=== PATIENT | female | born 1955 | race Caucasian/White ===

== ENCOUNTER 2016-12-11 15:25 | Inpatient (IN) | payer OTHER ==
[~2016-12-11] VITALS: Ht 167.6 cm; Wt 43.7 kg
[~2016-12-11 15:25] MED LIST: LORT5TAB PO; Z.0.NO CURRENT MEDS
[2016-12-11 15:27] VITALS: BP 154/77; PULSE 87; RESP 15; TEMP 97.9; O2SAT 97
[2016-12-11 15:53] VITALS: BP 168/95; PULSE 74; RESP 18; TEMP 98.2; O2SAT 94
[2016-12-11] MEDS ORDERED: KETOROLAC TROMETHAMINE 30 MG/ML (IVP) VIAL IV PUSH ONE (16:15)
[2016-12-11 16:38] LABS: AUTOMATED NEUTROPHIL # 3.7 TH/MM3 (1.8-7.7); BASOPHIL % 0.7 % (0.0-2.0); EOSINOPHIL # 0.1 TH/MM3 (0-0.4); EOSINOPHIL % 1.7 % (0.0-4.0); HEMATOCRIT 43.3 % (35.0-46.0); HEMO FLAGS DIFF FINAL; LYMPH % 27.6 % (9.0-44.0); LYMPHOCYTE # 1.6 TH/MM3 (1.0-4.8); MEAN CELL VOLUME 91.4 FL (80.0-100.0); MEAN CORPUSCULAR HEMOGLOBIN 30.5 PG (27.0-34.0); MEAN CORPUSCULAR HGB CONC 33.4 % (32.0-36.0); MONO % 7.5 % (0.0-8.0); NEUT % 62.5 % (16.0-70.0); PLATELET COUNT 219 TH/MM3 (150-450); RED BLOOD COUNT 4.74 MIL/MM3 (4.00-5.30); RED CELL DISTRIBUTION WIDTH 13.1 % (11.6-17.2); WHITE BLOOD COUNT 5.9 TH/MM3 (4.0-11.0)
--- NOTE | 2016-12-11 16:50 | RADRPT ---
EXAM DATE/TIME: 12/11/2016 16:19 [facility] COMPARISON: No previous studies available for comparison. INDICATIONS : Left sided chest pain, extending into shoulder, arm, and jaw. MEDICAL HISTORY : Chronic obstructive pulmonary disease. SURGICAL HISTORY : None. ENCOUNTER: Initial ACUITY: 3 weeks PAIN SCORE: 6/10 LOCATION: Left chest, shoulder, arm, and jaw. FINDINGS: Lungs are hyperexpanded without significant focal pleural or parenchymal opacities. Adnexal lead is w ithin normal limits. There is prominence of the AP window likely due to tortuosity of the thoracic ao rta. Bony thorax is intact. CONCLUSION: 1. Changes of obstructive pulmonary disease. 2. Prominent AP window which may be due to tortuosity of the thoracic aorta. This can be further eval uated with CT examination as clinically warranted. Dinesh Devine MD on December 11, 2016 at 16:48 Board Certified Radiologist. This report was verified electronically.
[2016-12-11 16:53] LABS: ANION GAP 7 MEQ/L (5-15); BICARBONATE 29.5 MEQ/L (21.0-32.0); BLOOD UREA NITROGEN 11 MG/DL (7-18); CHLORIDE 103 MEQ/L (98-107); GLOMERULAR FILTRATION RATE 85 ML/MIN (>89); POTASSIUM 3.6 MEQ/L (3.5-5.1); SODIUM (NA) 139 MEQ/L (136-145)
[2016-12-11 17:08] LABS: CREATINE KINASE 68 U/L (26-192)
--- NOTE | 2016-12-11 17:13 | PD ---
HPI Chief Complaint: Chest Pain Time Seen by Provider: 15:45 Travel History International Travel<30 days: No Contact w/Intl Traveler<30days: No Traveled to known affect area: No History of Present Illness HPI 61-year-old female came to the emergency room with history of left-sided chest pain radiating down to her left arm left shoulder neck and left side of her jaw. This has been going on for past 3-4 weeks and has been worse for past 6-8 days. Pain has been on and off. Worsen to some extent on movement but is present even when she is at rest. Vital signs were stable. Patient is a heavy smoker. She has history of hypertension. Patient had a stress test done one year ago at [facility] which was negative. No history of syncopal episode. No history of shortness of breath. No history of recent long distance travel or hospitalization. [facility] Past Medical History Narrative Medical List of her past medical, surgical, social and family history is reviewed from the nursing note. COPD: Yes Past Surgical History Gynecologic Surgery: Yes (LEFT OVARY REMOVED) Social History Alcohol Use: No Tobacco Use: Yes (6-8 cigarettes per day) Substance Use: No Allergies-Medications (Allergen,Severity, Reaction): Uncoded Allergies: LITTLE (Allergy, Mild, 06/10/09) Comments List of her allergies reviewed from the nursing note. Reported Meds & Prescriptions Reported Meds & Active Scripts Active No Active Prescriptions or Reported Medications Narrative Medication List of her home medications reviewed from the nursing note. Review of Systems Except as stated in HPI: all other systems reviewed are Neg Physical Exam Narrative GENERAL: Awake, alert, anxious, mild distress SKIN: Focused skin assessment warm/dry. HEAD: Atraumatic. Normocephalic. EYES: Pupils equal and round. No scleral icterus. No injection or drainage. ENT: No nasal bleeding or discharge. Mucous membranes pink and moist. NECK: Trachea midline. No JVD. CARDIOVASCULAR: Regular rate and rhythm. No murmur appreciated. RESPIRATORY: No accessory muscle use. Clear to auscultation. Breath sounds equal bilaterally. GASTROINTESTINAL: Abdomen soft, non-tender, nondistended. Hepatic and splenic margins not palpable. MUSCULOSKELETAL: No obvious deformities. No clubbing. No cyanosis. No edema. Shoulder and back is tender on palpation NEUROLOGICAL: Awake and alert. No obvious cranial nerve deficits. Motor grossly within normal limits. Normal speech. PSYCHIATRIC: Appropriate mood and affect; insight and judgment normal. Data Data Last Documented VS Vital Signs Date Time Temp Pulse Resp B/P (MAP) Pulse Ox O2 Delivery O2 Flow Rate FiO2 12/11/16 15:53 98.2 74 18 168/95 (119) 94 Room Air Orders Orders Electrocardiogram (12/11/16 15:34) Complete Blood Count With Diff (12/11/16 15:34) Basic Metabolic Panel (Bmp) (12/11/16 15:34) Ckmb (Isoenzyme) Profile (12/11/16 15:34) Troponin I (12/11/16 15:34) Chest, Single Ap (12/11/16 15:34) D-Dimer (12/11/16 16:02) Wool Sacker / Telemetry MATT.Q8H (12/11/16 16:02) Ketorolac Inj (Toradol Inj) (12/11/16 16:15) Ct Pulmonary Angiogram (12/11/16 ) Iohexol 350 Inj (Omnipaque 350 Inj) (12/11/16 17:42) Admit Order (Ed Use Only) (12/11/16 19:05) Labs Laboratory Tests Test 12/11/16 16:00 White Blood Count 5.9 TH/MM3 Red Blood Count 4.74 MIL/MM3 Hemoglobin 14.5 GM/DL Hematocrit 43.3 % Mean Corpuscular Volume 91.4 FL Mean Corpuscular Hemoglobin 30.5 PG Mean Corpuscular Hemoglobin Concent 33.4 % Red Cell Distribution Width 13.1 % Platelet Count 219 TH/MM3 Mean Platelet Volume 9.9 FL Neutrophils (%) (Auto) 62.5 % Lymphocytes (%) (Auto) 27.6 % Monocytes (%) (Auto) 7.5 % Eosinophils (%) (Auto) 1.7 % Basophils (%) (Auto) 0.7 % Neutrophils # (Auto) 3.7 TH/MM3 Lymphocytes # (Auto) 1.6 TH/MM3 Monocytes # (Auto) 0.4 TH/MM3 Eosinophils # (Auto) 0.1 TH/MM3 Basophils # (Auto) 0.0 TH/MM3 CBC Comment DIFF FINAL Differential Comment D-Dimer Quantitative (PE/DVT) 0.67 MG/L FEU Blood Urea Nitrogen 11 MG/DL Creatinine 0.70 MG/DL Random Glucose 91 MG/DL Calcium Level 9.0 MG/DL Sodium Level 139 MEQ/L Potassium Level 3.6 MEQ/L Chloride Level 103 MEQ/L Carbon Dioxide Level 29.5 MEQ/L Anion Gap 7 MEQ/L Estimat Glomerular Filtration Rate 85 ML/MIN Total Creatine Kinase 68 U/L Troponin I LESS THAN 0.02 NG/ML MDM Medical Decision Making Medical Screen Exam Complete: Yes Emergency Medical Condition: Yes Medical Record Reviewed: Yes Interpretation(s) Twelve-lead EKG was reviewed by me. Normal sinus rhythm, normal axis, nonspecific ST-T wave changes. Heart rate of 80 bpm. Differential Diagnosis ACS, non-STEMI, PE, aortic dissection Narrative Course 5:12 PM troponin is negative. Awaiting for her d-dimer. If d-dimer is negative I'll admit the patient to the chest pain center due to significant risk factors including age, smoking history and hypertension. 5:20 PM d-dimer was slightly elevated. I've ordered a CT pulmonary angiogram. Awaiting for the CT to be done and resulted. 6:[address] scan report is back. Patient doesn't have PE but has a large mediastinal mass. Based on this I would like to admit this patient to medical service. Awaiting for the hospitalist to call back. Procedures EKG Prior to Arrival: No Diagnosis Primary Impression: Chest pain Qualified Codes: R07.9 - Chest pain, unspecified Additional Impression: Mediastinal mass Admitting Information Admitting Physician Requests: Observation Scripts No Active Prescriptions or Reported Meds Tatiana Kan MD Dec 11, 2016 17:13
[2016-12-11] MEDS ORDERED: IOHEXOL 350 MG/ML 10 ML VIAL (for RAD DIAG) IVCONTRAST ONE (17:42)
--- NOTE | 2016-12-11 17:59 | RADRPT ---
EXAM DATE/TIME: 12/11/2016 17:30 [facility] COMPARISON: CHEST SINGLE AP, December 11, 2016, 16:19. INDICATIONS : Left side chest pain. IV CONTRAST: 66 cc Omnipaque 350 (iohexol) IV RADIATION DOSE: 3.56 CTDIvol (mGy) MEDICAL HISTORY : Chronic obstructive pulmonary disease. Hypertension. Smoker SURGICAL HISTORY : None. ENCOUNTER: Initial ACUITY: 1 month PAIN SCALE: 4/10 LOCATION: Left chest TECHNIQUE: Volumetric scanning of the chest was performed using a pulmonary embolism protocol MIP images were re constructed. Using automated exposure control and adjustment of the mA and/or kV according to patien t size, radiation dose was kept as low as reasonably achievable to obtain optimal diagnostic quality images. DICOM format image data is available electronically for review and comparison. Follow-up recommendations for detected pulmonary nodules are based at a minimum on nodule size and pa tient risk factors according to Fleischner Society Guidelines. FINDINGS: PULMONARY ARTERIES: No filling defects are seen in the pulmonary arteries through the segmental level. Extrinsic compress ion of the main left pulmonary artery. LUNGS: Moderate to severe centrilobular emphysema. The large central left perihilar mass with extensive medi astinal adenopathy and dense anterior left upper lobe consolidation, likely post obstructive. At the epicenter in the left hilum, this mass measures 2.2 x 8.7 cm. 2.3 x 1.3 cm subpleural nodule in the l eft lung base adjacent to diaphragm. PLEURAE: There is no pleural thickening or pleural effusion. MEDIASTINUM: Massive mediastinal adenopathy with confluent adenopathy/mass measuring 3.2 x 5.9 cm and in the anter ior carinal region. Small pericardial effusion. MUSCULOSKELETAL: No focal abnormal lytic or blastic bony lesions. MISCELLANEOUS: The visualized upper abdominal organs demonstrate no acute abnormality. CONCLUSION: 1. No evidence for pulmonary embolism although there is mass effect on the main left pulmonary artery . 2. Moderate to severe centrilobular emphysema with large central left hilar lung mass measuring 8.7 x 2.2 cm with confluent mediastinal adenopathy/mass measuring 3.2 x 5.9 cm in the anterior carinal reg ion. There is also postobstructive airspace consolidation in the anterior left upper lobe medially. F indings are consistent with central lung primary malignancy such as small cell carcinoma. 3. 2.3 x 1.3 cm left lung base subpleural nodule adjacent to the diaphragm consistent with distal met astatic disease. Dinesh Devine MD on December 11, 2016 at 17:48 Board Certified Radiologist. This report was verified electronically.
[2016-12-11 19:12] VITALS: BP 191/98; PULSE 69; RESP 20; O2SAT 98
[2016-12-11 20:11] VITALS: BP 145/82; PULSE 71; RESP 16; O2SAT 96
[2016-12-11] MEDS ORDERED: NALOXONE HCL 0.4 MG/ML AMP IV PUSH PRN (20:45)
[2016-12-11] MEDS ORDERED: SODIUM CHLORIDE 0.9% FLUSH 10 ML FLUSH IV FLUSH PRN (20:45)
[2016-12-11] MEDS ORDERED: MAGNESIUM HYDROXIDE SUSP 30 ML CUP PO PRN (20:45)
[2016-12-11] MEDS ORDERED: BISACODYL 10 MG SUPP RECTAL PRN (20:45)
[2016-12-11] MEDS ORDERED: LACTULOSE SYRUP 20 GM/30 ML CUP PO PRN (20:45)
[2016-12-11] MEDS ORDERED: MORPHINE SULFATE 4 MG/ML INJ IV PUSH PRN (20:45)
[2016-12-11] MEDS ORDERED: SENNOSIDES 8.6 MG TAB PO PRN (20:45)
--- NOTE | 2016-12-11 21:07 | HHI.HP ---
HPI Service [facility] Hospitalists Primary Care Physician Christine Bergeron M.D. Admission Diagnosis chest pain, mediastinal mass Chief Complaint: chest pain weight loss cough progressive over 6months worse last few days Travel History International Travel<30 Days: No Contact w/Intl Traveler <30 Da: No Traveled to Known Affected Are: No History of Present Illness 61 y/o white female with history of smoking who presents to er with left sided chest pain intermittent worse with movement and with some shortness of breath . Pain comes and goes but has been progressive for last 6 months associated with weight loss poor appetite cough fatigue. Patient does smoke about 6 months ago was smoking 2 ppd and slowly has been decresing that to 6 cigarettes a day. In er ekg and lab work was unremarkable but had positive d dimmer and CTA was ordered showed no PE but large hilar mass with mediastinal involvement suggesting malignancy. Will ad papi and obtain pulmonary consult. Patient states has had pain to left neck and jaw as well will recheck ekg and troponin in am . Review of Systems Constitutional: COMPLAINS OF: Fatigue, Weight loss Cardiovascular: COMPLAINS OF: Chest pain, Dyspnea on Exertion Past Family Social History Past Medical History restless leg syndrome Past Surgical History none Reported Medications requip Allergies: Uncoded Allergies: BABARIENE (Allergy, Mild, 06/10/09) Social History smoker 2 ppd now 1/2 ppd Physical Exam Vital Signs Vital Signs Date Time Temp Pulse Resp B/P (MAP) Pulse Ox O2 Delivery O2 Flow Rate FiO2 12/11/16 20:11 71 16 145/82 (103) 96 Room Air 12/11/16 19:12 69 20 191/98 (129) 98 Room Air 12/11/16 15:53 98.2 74 18 168/95 (119) 94 Room Air 12/11/16 15:27 97.9 87 15 154/77 (102) 97 Physical Exam GENERAL: This is a well-nourished, well-developed patient, in no apparent distress. SKIN: No rashes, ecchymoses or lesions. Cool and dry. HEAD: Atraumatic. Normocephalic. No temporal or scalp tenderness. EYES: Pupils equal round and reactive. Extraocular motions intact. No scleral icterus. No injection or drainage. ENT: Nose without bleeding, purulent drainage or septal hematoma. Throat without erythema, tonsillar hypertrophy or exudate. Uvula midline. Airway patent. NECK: Trachea midline. No JVD or lymphadenopathy. Supple, nontender, no meningeal signs. CARDIOVASCULAR: Regular rate and rhythm without murmurs, gallops, or rubs. RESPIRATORY: Clear to auscultation. Breath sounds decrease bilateral. No wheezes , rales, or rhonchi. GASTROINTESTINAL: Abdomen soft, non-tender, nondistended. No hepato-splenomegaly , or palpable masses. No guarding. MUSCULOSKELETAL: Extremities without clubbing, cyanosis, or edema. No joint tenderness, effusion, or edema noted. No calf tenderness. Negative Homans sign bilaterally. NEUROLOGICAL: Awake and alert. Cranial nerves II through XII intact. Motor and sensory grossly within normal limits. Five out of 5 muscle strength in all muscle groups. Normal speech. Laboratory Laboratory Tests Test 12/11/16 16:00 White Blood Count 5.9 Red Blood Count 4.74 Hemoglobin 14.5 Hematocrit 43.3 Mean Corpuscular Volume 91.4 Mean Corpuscular Hemoglobin 30.5 Mean Corpuscular Hemoglobin Concent 33.4 Red Cell Distribution Width 13.1 Platelet Count 219 Mean Platelet Volume 9.9 Neutrophils (%) (Auto) 62.5 Lymphocytes (%) (Auto) 27.6 Monocytes (%) (Auto) 7.5 Eosinophils (%) (Auto) 1.7 Basophils (%) (Auto) 0.7 Neutrophils # (Auto) 3.7 Lymphocytes # (Auto) 1.6 Monocytes # (Auto) 0.4 Eosinophils # (Auto) 0.1 Basophils # (Auto) 0.0 CBC Comment DIFF FINAL Differential Comment D-Dimer Quantitative (PE/DVT) 0.67 Blood Urea Nitrogen 11 Creatinine 0.70 Random Glucose 91 Calcium Level 9.0 Sodium Level 139 Potassium Level 3.6 Chloride Level 103 Carbon Dioxide Level 29.5 Anion Gap 7 Estimat Glomerular Filtration Rate 85 Total Creatine Kinase 68 Troponin I LESS THAN 0.02 Result Diagram: 12/11/16 1600 12/11/16 1600 Imaging Last 24 hours Impressions Chest X-Ray 12/11/16 5034 Signed Impressions: Service Date/Time: Sunday, December 11, 2016 16:19 - CONCLUSION: 1. Changes of obstructive pulmonary disease. 2. Prominent AP window which may be due to tortuosity of the thoracic aorta. This can be further evaluated with CT examination as clinically warranted. Dinesh Devine MD CT Angiography 12/11/16 0000 Signed Impressions: Service Date/Time: Sunday, December 11, 2016 17:30 - CONCLUSION: 1. No evidence for pulmonary embolism although there is mass effect on the main left pulmonary artery. 2. Moderate to severe centrilobular emphysema with large central left hilar lung mass measuring 8.7 x 2.2 cm with confluent mediastinal adenopathy/mass measuring 3.2 x 5.9 cm in the anterior carinal region. There is also postobstructive airspace consolidation in the anterior left upper lobe medially. Findings are consistent with central lung primary malignancy such as small cell carcinoma. 3. 2.3 x 1.3 cm left lung base subpleural nodule adjacent to the diaphragm consistent with distal metastatic disease. Dinesh Devine MD Course ekg unremarkable troponin negative Caprini VTE Risk Assessment Caprini VTE Risk Assessment: Mod/High Risk (score >= 2) Caprini Risk Assessment Model Point Value = 1 Point Value = 2 Point Value = 3 Point Value = 5 Age 41-60 Minor surgery BMI > 25 kg/m2 Swollen legs Varicose veins or History of unexplained or recurrent spontaneous Oral contraceptives or hormone replacement Sepsis (< 1 month) Serious lung disease, including pneumonia (< 1 month) Abnormal pulmonary function Acute myocardial infarction Congestive heart failure (< 1 month) History of inflammatory bowel disease Medical patient at bed rest Age 61-74 Arthroscopic surgery Major open surgery (> 45 min) Laparoscopic surgery (> 45 min) Malignancy Confined to bed (> 72 hours) Immobilizing plaster cast Central venous access Age >= 75 History of VTE Family history of VTE Factor V Leiden Prothrombin [id number] Lupus anticoagulant Anticardiolipin antibodies Elevated serum homocysteine Heparin-induced thrombocytopenia Other congenital or acquired thrombophilia Stroke (< 1 month) Elective arthroplasty Hip, pelvis, or leg fracture Acute spinal cord injury (< 1 month) Prophylaxis Regimen Total Risk Factor Score Risk Level Prophylaxis Regimen 0-1 Low Early ambulation 2 Moderate Order ONE of the following: *Sequential Compression Device (SCD) *Heparin 5000 units SQ BID 3-4 Higher Order ONE of the following medications: *Heparin 5000 units SQ TID *Enoxaparin/Lovenox 40 mg SQ daily (WT < 150 kg, CrCl > 30 mL/min) *Enoxaparin/Lovenox 30 mg SQ daily (WT < 150 kg, CrCl > 10-29 mL/min) *Enoxaparin/Lovenox 30 mg SQ BID (WT < 150 kg, CrCl > 30 mL/min) AND/OR *Sequential Compression Device (SCD) 5 or more Highest Order ONE of the following medications: *Heparin 5000 units SQ TID (Preferred with Epidurals) *Enoxaparin/Lovenox 40 mg SQ daily (WT < 150 kg, CrCl > 30 mL/min) *Enoxaparin/Lovenox 30 mg SQ daily (WT < 150 kg, CrCl > 10-29 mL/min) *Enoxaparin/Lovenox 30 mg SQ BID (WT < 150 kg, CrCl > 30 mL/min) AND *Sequential Compression Device (SCD) Assessment and Plan Problem List: (1) Chest pain ICD Codes: R07.9 - Chest pain, unspecified Status: Acute Plan: will recheck troponin and ekg in am doubt cardiac in view of the CT findings (2) Hilar mass ICD Codes: R91.8 - Other nonspecific abnormal finding of lung field Status: Acute Plan: will consult pulmonary regarding bronchoscopy and further work up (3) Mediastinal mass ICD Codes: J98.59 - Other diseases of mediastinum, not elsewhere classified Status: Acute Plan: as above pulmonary consult Assessment and Plan further plan as case develops Code Status full Discussed Condition With patient Physician Certification 2 Midnight Certification Type: Admission for Inpatient Services Order for Inpatient Services The services are ordered in accordance with Medicare regulations or non- Medicare payer requirements, as applicable. In the case of services not specified as inpatient-only, they are appropriately provided as inpatient services in accordance with the 2-midnight benchmark. Estimated LOS (days): 3 3 days is the estimated time the patient will need to remain in the hospital, assuming treatment plan goals are met and no additional complications. Post-Hospital Plan: Not yet determined Problem Qualifiers (1) Chest pain: Qualified Codes: R07.9 - Chest pain, unspecified Jamshid Billings MD Dec 11, 2016 21:07
[2016-12-11] MEDS: SODIUM CHLORIDE 0.9% FLUSH 10 ML FLUSH IV FLUSH SCH (21:09)
[2016-12-11 21:10] VITALS: BP 147/87; PULSE 65; RESP 16; O2SAT 96
[2016-12-11] MEDS: DOCUSATE SODIUM 50 MG/SENNA 8.6 MG TAB PO SCH (21:18)
[2016-12-11 22:32] VITALS: BP 151/82; PULSE 72; RESP 20; TEMP 97.8; O2SAT 93
[2016-12-12] VITALS (7 sets, daily range): BP systolic 121–163; BP diastolic 70–83; PULSE 59–73; RESP 18–21; TEMP 97.7–98.3; O2SAT 94–97
--- NOTE | 2016-12-12 05:10 | EKG ---
Date Performed: 12/11/2016 Time Performed: 16:01:34 PTAGE: 61 years EKG: Sinus rhythm POSSIBLE LEFT ATRIAL ENLARGEMENT BORDERLINE ECG NO PREVIOUS TRACING DOCTOR: Rick Olea Interpretating Date/Time 12/12/2016 05:05:39
[2016-12-12] MEDS: ACETAMINOPHEN 325 MG TAB PO PRN ×2 (06:37→16:43)
[2016-12-12 07:31] LABS: PROTHROMBIN TIME - PATIENT 10.7 SEC (9.8-11.6)
[2016-12-12 07:50] LABS: ALT (GPT) 11 U/L (10-53); ANION GAP 6 MEQ/L (5-15); AST (GOT) 13 U/L (15-37); BICARBONATE 28.8 MEQ/L (21.0-32.0); BLOOD UREA NITROGEN 16 MG/DL (7-18); CHLORIDE 106 MEQ/L (98-107); GLOMERULAR FILTRATION RATE 92 ML/MIN (>89); POTASSIUM 3.9 MEQ/L (3.5-5.1); SODIUM (NA) 141 MEQ/L (136-145)
[2016-12-12 07:54] LABS: ALKALINE PHOSPHATASE 106 U/L (45-117); TOTAL BILIRUBIN ADULT 0.2 MG/DL (0.2-1.0)
--- NOTE | 2016-12-12 08:28 | HHI.PR ---
Subjective Remarks Pt reports that she continues to have pain in the left chest which is fairly constant She feels that the pain is worse with movement or certain positions. She denies any palpitations, dizziness or weakness. She has had this pain for approx 3 weeks but it has been constant for about 2 weeks. She has felt more easily winded with minimal exertion over the last few weeks as well. MInimally productive cough with clear sputum. Afebrile She has lost about 27lbs over the last few months, 10lbs of that has been within the last month. She has poor appetite and has noted some dysphagia to solid foods. Pt has been tolerating solids. Objective Vitals Vital Signs Date Time Temp Pulse Resp B/P (MAP) Pulse Ox O2 Delivery O2 Flow Rate FiO2 12/12/16 04:28 98.1 70 20 163/80 (107) 95 12/12/16 00:17 98.3 70 20 139/80 (99) 94 12/11/16 22:32 97.8 72 20 151/82 (105) 93 12/11/16 21:48 12/11/16 21:10 65 16 147/87 (107) 96 Room Air 12/11/16 20:11 71 16 145/82 (103) 96 Room Air 12/11/16 19:12 69 20 191/98 (129) 98 Room Air 12/11/16 15:53 98.2 74 18 168/95 (119) 94 Room Air 12/11/16 15:27 97.9 87 15 154/77 (102) 97 Result Diagram: 12/11/16 1600 12/12/16 0711 Other Results Laboratory Tests Test 12/11/16 16:00 12/12/16 07:11 White Blood Count 5.9 TH/MM3 Red Blood Count 4.74 MIL/MM3 Hemoglobin 14.5 GM/DL Hematocrit 43.3 % Mean Corpuscular Volume 91.4 FL Mean Corpuscular Hemoglobin 30.5 PG Mean Corpuscular Hemoglobin Concent 33.4 % Red Cell Distribution Width 13.1 % Platelet Count 219 TH/MM3 Mean Platelet Volume 9.9 FL Neutrophils (%) (Auto) 62.5 % Lymphocytes (%) (Auto) 27.6 % Monocytes (%) (Auto) 7.5 % Eosinophils (%) (Auto) 1.7 % Basophils (%) (Auto) 0.7 % Neutrophils # (Auto) 3.7 TH/MM3 Lymphocytes # (Auto) 1.6 TH/MM3 Monocytes # (Auto) 0.4 TH/MM3 Eosinophils # (Auto) 0.1 TH/MM3 Basophils # (Auto) 0.0 TH/MM3 CBC Comment DIFF FINAL Differential Comment D-Dimer Quantitative (PE/DVT) 0.67 MG/L FEU Blood Urea Nitrogen 11 MG/DL 16 MG/DL Creatinine 0.70 MG/DL 0.65 MG/DL Random Glucose 91 MG/DL 87 MG/DL Calcium Level 9.0 MG/DL 8.6 MG/DL Sodium Level 139 MEQ/L 141 MEQ/L Potassium Level 3.6 MEQ/L 3.9 MEQ/L Chloride Level 103 MEQ/L 106 MEQ/L Carbon Dioxide Level 29.5 MEQ/L 28.8 MEQ/L Anion Gap 7 MEQ/L 6 MEQ/L Estimat Glomerular Filtration Rate 85 ML/MIN 92 ML/MIN Total Creatine Kinase 68 U/L Troponin I LESS THAN 0.02 NG/ML LESS THAN 0.02 NG/ML Prothrombin Time 10.7 SEC Prothromb Time International Ratio 1.0 RATIO Total Protein 6.3 GM/DL Albumin 3.2 GM/DL Alkaline Phosphatase 106 U/L Aspartate Amino Transf (AST/SGOT) 13 U/L Alanine Aminotransferase (ALT/SGPT) 11 U/L Total Bilirubin 0.2 MG/DL Imaging Last 24 hours Impressions Chest X-Ray 12/11/16 1534 Signed Impressions: Service Date/Time: Sunday, December 11, 2016 16:19 - CONCLUSION: 1. Changes of obstructive pulmonary disease. 2. Prominent AP window which may be due to tortuosity of the thoracic aorta. This can be further evaluated with CT examination as clinically warranted. Dinesh Devine MD CT Angiography 12/11/16 0000 Signed Impressions: Service Date/Time: Sunday, December 11, 2016 17:30 - CONCLUSION: 1. No evidence for pulmonary embolism although there is mass effect on the main left pulmonary artery. 2. Moderate to severe centrilobular emphysema with large central left hilar lung mass measuring 8.7 x 2.2 cm with confluent mediastinal adenopathy/mass measuring 3.2 x 5.9 cm in the anterior carinal region. There is also postobstructive airspace consolidation in the anterior left upper lobe medially. Findings are consistent with central lung primary malignancy such as small cell carcinoma. 3. 2.3 x 1.3 cm left lung base subpleural nodule adjacent to the diaphragm consistent with distal metastatic disease. Dinesh Devine MD Objective Remarks General: Thin female in NAD, AAOx3 Chest: Poor air movement, no wheezing or rhonchi Cardiac: Regular Abd: +BS, soft ND/NT Ext: No edema A/P Problem List: (1) Chest pain ICD Codes: R07.9 - Chest pain, unspecified Status: Acute Plan: - Pt is a 61 y/o female with COPD, tobacco use, and hx of HTN (off medications) who presented to the ED with complaints of constant left sided chest pain, worse with movement, some radiating jaw pain. She also reported unintentional weight loss, poor appetite, generalized weakness, and some dysphagia. - CE were negative x 2 - CTA (12/11/16) --> No evidence for pulmonary embolism although there is mass effect on the main left pulmonary artery. Moderate to severe centrilobular emphysema with large central left hilar lung mass measuring 8.7 x 2.2cm with confluent mediastinal adenopathy/mass measuring 3.2 x 5.9 cm in the anterior carinal region. There is also postobstructive airspace consolidation in the anterior left upper lobe medially. Findings are consistent with central lung primary malignancy such as small cell carcinoma. 2.3 x 1.3 cm left lung base subpleural nodule adjacent to the diaphragm consistent with distal metastatic disease. - Pulmonary medicine has been consulted to evaluate for bronchoscopy for biopsy - library monitor - Pain control PRN - Pt declines any breathing treatments - Mucinex BID - Ensure with each meal and at bedtime - May consider GI consultation as pt reports some intermittent dysphagia, may be related to external compression from about noted masses - Supportive care - Further recommendations as the case develops - DVT prophylaxis with Lovenox (2) Hilar mass ICD Codes: R91.8 - Other nonspecific abnormal finding of lung field Status: Acute Plan: - See above. (3) Mediastinal mass ICD Codes: J98.59 - Other diseases of mediastinum, not elsewhere classified Status: Acute Plan: - See above. Assessment and Plan Patient examined. Assessment and plan formulated with Kelly Sharma PA-C. I agree with the above. lung and mediastinal mass. pulmonary consulted bronch vs ct guided bx emphesema. pt refusing nebs. Problem Qualifiers (1) Chest pain: Qualified Codes: R07.9 - Chest pain, unspecified Kelly Sharma Dec 12, 2016 08:28 Norman Zamora MD Dec 12, 2016 16:40
[2016-12-12] MEDS: DOCUSATE SODIUM 50 MG/SENNA 8.6 MG TAB PO SCH ×2 (10:38→20:47)
[2016-12-12] MEDS: guaiFENesin E.R. 600 MG TAB PO SCH ×2 (10:39→20:47)
[2016-12-12] MEDS: ENOXAPARIN SODIUM 30 MG/0.3 ML SYRINGE SQ SCH (10:39)
[2016-12-12] MEDS: SODIUM CHLORIDE 0.9% FLUSH 10 ML FLUSH IV FLUSH SCH ×2 (10:40→20:47)
[2016-12-12] MEDS ORDERED: MORPHINE SULFATE 4 MG/ML INJ IV PUSH PRN (15:00)
[2016-12-12] MEDS ORDERED: ACETAMINOPHEN/HYDROcodone 325 MG/5 MG TAB PO PRN (15:30)
--- NOTE | 2016-12-12 20:32 | MB ---
cc: PAULY COATS DATE OF CONSULTATION 12/12/16 REASON FOR CONSULTATION Left hilar mass. HISTORY OF PRESENT ILLNESS The patient is a 61 year old female who comes to the emergency room complaining of shortness of breath and pain in the left side of the chest with chronic cough, expectoration of short amount of whitish sputum. Her shortness of breath has been present for months, so is generalized fatigue. The patient smoked two packs a day until about six months ago when she decreased it now to a few cigarettes a day. CT angiogram was undertaken without evidence of pulmonary emboli. However, she does have a large hiatal mass with mediastinal adenopathy, malignancy suspect. I am asked to see the patient at this time for same. PAST MEDICAL HISTORY 1. Restless leg syndrome. 2. No diabetes, no hypertension, no heart disease. MEDICATIONS Requip ALLERGIES CODEINE SOCIAL HISTORY Smoked two packs a day for over 30 years, decreased the amount lately. Does not drink any alcohol, does not use drugs. No TB or industrial exposure. FAMILY HISTORY Noncontributory. REVIEW OF SYSTEMS A 12 point review of systems as per History of Present Illness and past history, otherwise, negative. PHYSICAL EXAMINATION GENERAL: The patient is alert. VITAL SIGNS: Temperature 98, pulse 80, respirations 16, blood pressure 120/70. HEENT: Unremarkable. Eyes without icterus. NECK: Without adenopathy, thyroid enlargement. Central trachea. CHEST: No dullness to percussion, clear to auscultation. CARDIAC: PMI not appreciated. S1, S2 audible. No murmur, no rub. ABDOMEN: Lax. Audible bowel sounds. EXTREMITIES: No cyanosis, clubbing or edema. LABORATORY DATA White count 5.9, hemoglobin 14, hematocrit 43. Sodium 141, potassium 3.9, BUN 16, creatinine 0.6. INR 1.0. IMPRESSION 1. Left hilar mass and mediastinal adenopathy 2. Probable chronic obstructive pulmonary disease as suggested by history. PLAN The patient has been given bronchodilator therapy and appropriately so. The patient will need tissue diagnosis. Bronchoscopy will be undertaken in attempt to obtain tissue diagnosis. Procedure, complications explained to the patient. She is agreeable to proceed at this time. Based on pulmonary function, arterial blood gas will be obtained as well. I do thank you for asking me to partake in Mrs. De Anda' care. MD LEE Childs/ /8:13 PM 8:16 PM
[2016-12-13] VITALS (11 sets, daily range): BP systolic 105–185; BP diastolic 65–86; PULSE 58–93; RESP 18–20; TEMP 97.5–98.6; O2SAT 92–96
[2016-12-13] MEDS: ACETAMINOPHEN/HYDROcodone 325 MG/5 MG TAB PO PRN ×3 (04:34→20:43)
--- NOTE | 2016-12-13 09:51 | HHI.PR ---
Subjective Remarks Pt overall stable She is very worried about potential cancer diagnosis as she recently just watched her ex- who she was still close with from lung cancer. Objective Vitals Vital Signs Date Time Temp Pulse Resp B/P (MAP) Pulse Ox O2 Delivery O2 Flow Rate FiO2 12/13/16 08:23 98.4 66 18 150/80 (103) 92 12/13/16 06:03 67 12/13/16 06:01 93 12/13/16 04:00 97.9 77 18 172/86 (114) 94 12/13/16 00:00 97.5 61 18 152/81 (104) 94 12/12/16 20:00 97.7 71 18 147/70 (95) 97 12/12/16 15:00 68 12/12/16 13:39 97.9 62 18 121/75 (90) Result Diagram: 12/11/16 1600 12/12/16 0711 Other Results Laboratory Tests Test 12/11/16 16:00 12/12/16 07:11 White Blood Count 5.9 TH/MM3 Red Blood Count 4.74 MIL/MM3 Hemoglobin 14.5 GM/DL Hematocrit 43.3 % Mean Corpuscular Volume 91.4 FL Mean Corpuscular Hemoglobin 30.5 PG Mean Corpuscular Hemoglobin Concent 33.4 % Red Cell Distribution Width 13.1 % Platelet Count 219 TH/MM3 Mean Platelet Volume 9.9 FL Neutrophils (%) (Auto) 62.5 % Lymphocytes (%) (Auto) 27.6 % Monocytes (%) (Auto) 7.5 % Eosinophils (%) (Auto) 1.7 % Basophils (%) (Auto) 0.7 % Neutrophils # (Auto) 3.7 TH/MM3 Lymphocytes # (Auto) 1.6 TH/MM3 Monocytes # (Auto) 0.4 TH/MM3 Eosinophils # (Auto) 0.1 TH/MM3 Basophils # (Auto) 0.0 TH/MM3 CBC Comment DIFF FINAL Differential Comment D-Dimer Quantitative (PE/DVT) 0.67 MG/L FEU Blood Urea Nitrogen 11 MG/DL 16 MG/DL Creatinine 0.70 MG/DL 0.65 MG/DL Random Glucose 91 MG/DL 87 MG/DL Calcium Level 9.0 MG/DL 8.6 MG/DL Sodium Level 139 MEQ/L 141 MEQ/L Potassium Level 3.6 MEQ/L 3.9 MEQ/L Chloride Level 103 MEQ/L 106 MEQ/L Carbon Dioxide Level 29.5 MEQ/L 28.8 MEQ/L Anion Gap 7 MEQ/L 6 MEQ/L Estimat Glomerular Filtration Rate 85 ML/MIN 92 ML/MIN Total Creatine Kinase 68 U/L Troponin I LESS THAN 0.02 NG/ML LESS THAN 0.02 NG/ML Prothrombin Time 10.7 SEC Prothromb Time International Ratio 1.0 RATIO Total Protein 6.3 GM/DL Albumin 3.2 GM/DL Alkaline Phosphatase 106 U/L Aspartate Amino Transf (AST/SGOT) 13 U/L Alanine Aminotransferase (ALT/SGPT) 11 U/L Total Bilirubin 0.2 MG/DL Imaging Last 24 hours Impressions Chest X-Ray 12/11/16 1534 Signed Impressions: Service Date/Time: Sunday, December 11, 2016 16:19 - CONCLUSION: 1. Changes of obstructive pulmonary disease. 2. Prominent AP window which may be due to tortuosity of the thoracic aorta. This can be further evaluated with CT examination as clinically warranted. Dinesh Devine MD CT Angiography 12/11/16 0000 Signed Impressions: Service Date/Time: Sunday, December 11, 2016 17:30 - CONCLUSION: 1. No evidence for pulmonary embolism although there is mass effect on the main left pulmonary artery. 2. Moderate to severe centrilobular emphysema with large central left hilar lung mass measuring 8.7 x 2.2 cm with confluent mediastinal adenopathy/mass measuring 3.2 x 5.9 cm in the anterior carinal region. There is also postobstructive airspace consolidation in the anterior left upper lobe medially. Findings are consistent with central lung primary malignancy such as small cell carcinoma. 3. 2.3 x 1.3 cm left lung base subpleural nodule adjacent to the diaphragm consistent with distal metastatic disease. Dinesh Devine MD Objective Remarks General: Thin female in NAD, AAOx3 Chest: Poor air movement, no wheezing or rhonchi Cardiac: Regular Abd: +BS, soft ND/NT Ext: No edema A/P Problem List: (1) Chest pain ICD Codes: R07.9 - Chest pain, unspecified Status: Acute Plan: - Pt is a 61 y/o female with COPD, tobacco use, and hx of HTN (off medications) who presented to the ED with complaints of constant left sided chest pain, worse with movement, some radiating jaw pain. She also reported unintentional weight loss, poor appetite, generalized weakness, and some dysphagia. - CE were negative x 2 - CTA (12/11/16) --> No evidence for pulmonary embolism although there is mass effect on the main left pulmonary artery. Moderate to severe centrilobular emphysema with large central left hilar lung mass measuring 8.7 x 2.2cm with confluent mediastinal adenopathy/mass measuring 3.2 x 5.9 cm in the anterior carinal region. There is also postobstructive airspace consolidation in the anterior left upper lobe medially. Findings are consistent with central lung primary malignancy such as small cell carcinoma. 2.3 x 1.3 cm left lung base subpleural nodule adjacent to the diaphragm consistent with distal metastatic disease. - Appreciate Pulmonary medicine consultation, pt to under bronchoscopy early next week (Wednesday or Wednesday) - monitoring specialist - Pain control PRN - Pt declines any breathing treatments - Mucinex BID - Ensure with each meal and at bedtime - May consider GI consultation as pt reports some intermittent dysphagia, may be related to external compression from about noted masses - Supportive care - DVT prophylaxis with Lovenox (2) Hilar mass ICD Codes: R91.8 - Other nonspecific abnormal finding of lung field Status: Acute Plan: - See above. (3) Mediastinal mass ICD Codes: J98.59 - Other diseases of mediastinum, not elsewhere classified Status: Acute Plan: - See above. Assessment and Plan Patient examined. Assessment and plan formulated with Kelly Sharma PA-C. I agree with the above. left lung and mediastinal masses emphesema bronchoscopy planned tomorrow. Problem Qualifiers (1) Chest pain: Qualified Codes: R07.9 - Chest pain, unspecified Kelly Sharma Dec 13, 2016 09:51 Norman Zamora MD Dec 13, 2016 11:14
[2016-12-13] MEDS: guaiFENesin E.R. 600 MG TAB PO SCH ×2 (10:04→20:38)
[2016-12-13] MEDS: DOCUSATE SODIUM 50 MG/SENNA 8.6 MG TAB PO SCH ×2 (10:05→20:43)
[2016-12-13] MEDS: ENOXAPARIN SODIUM 30 MG/0.3 ML SYRINGE SQ SCH (10:06)
[2016-12-13] MEDS: SODIUM CHLORIDE 0.9% FLUSH 10 ML FLUSH IV FLUSH SCH ×2 (10:17→20:38)
--- NOTE | 2016-12-13 16:20 | HHI.PR ---
Subjective Remarks ALERT NO SOB Objective Vital Signs Date Time Temp Pulse Resp B/P (MAP) Pulse Ox O2 Delivery O2 Flow Rate FiO2 12/13/16 16:00 98.6 61 18 131/76 (94) 96 12/13/16 12:00 98.3 75 18 105/65 (78) 96 12/13/16 11:09 58 12/13/16 08:23 98.4 66 18 150/80 (103) 92 12/13/16 06:03 67 12/13/16 06:01 93 12/13/16 04:00 97.9 77 18 172/86 (114) 94 12/13/16 00:00 97.5 61 18 152/81 (104) 94 12/12/16 20:00 97.7 71 18 147/70 (95) 97 Result Diagram: 12/11/16 1600 12/12/16 0711 Objective Remarks GENERAL: SKIN: Warm and dry. HEAD: Atraumatic. Normocephalic. EYES: Pupils equal and round. No scleral icterus. No injection or drainage. ENT: No nasal bleeding or discharge. Mucous membranes pink and moist. NECK: Trachea midline. No JVD. CARDIOVASCULAR: Regular rate and rhythm. RESPIRATORY: No accessory muscle use. Clear to auscultation. Breath sounds equal bilaterally. GASTROINTESTINAL: Abdomen soft, non-tender, nondistended. Hepatic and splenic margins not palpable. MUSCULOSKELETAL: Extremities without clubbing, cyanosis, or edema. No obvious deformities. NEUROLOGICAL: Awake and alert. No obvious cranial nerve deficits. Motor grossly within normal limits. Five out of 5 muscle strength in the arms and legs. Normal speech. PSYCHIATRIC: Appropriate mood and affect; insight and judgment normal. Assessment and Plan Assessment and Plan HILAR MASS ? COPD PLAN BRONCHOSCOPY CHECK PFT Huey Arzate MD Dec 13, 2016 16:20
[2016-12-13] MEDS ORDERED: HYDROmorphone HCL PF 1 MG/ML VIAL IV PUSH ONE (23:15)
[2016-12-13] MEDS ORDERED: ONDANSETRON HCL 4 MG/2 ML VIAL IV PUSH PRN (23:45)
[2016-12-14] VITALS: BP 120/59; PULSE 60; RESP 20; TEMP 97.7; O2SAT 94
[2016-12-14 04:00] VITALS: BP 114/66; PULSE 64; RESP 20; TEMP 97.9; O2SAT 92
[2016-12-14 08:00] VITALS: BP 120/59; PULSE 62; PULSE 73; RESP 20; TEMP 97.9; O2SAT 87
[2016-12-14] MEDS: ACETAMINOPHEN/HYDROcodone 325 MG/5 MG TAB PO PRN ×3 (08:55→19:29)
[2016-12-14] MEDS: guaiFENesin E.R. 600 MG TAB PO SCH ×2 (08:55→20:50)
[2016-12-14] MEDS: DOCUSATE SODIUM 50 MG/SENNA 8.6 MG TAB PO SCH ×2 (08:56→20:50)
[2016-12-14] MEDS: SODIUM CHLORIDE 0.9% FLUSH 10 ML FLUSH IV FLUSH SCH ×2 (08:56→20:50)
[2016-12-14 12:00] VITALS: BP 105/66; PULSE 74; RESP 20; TEMP 98.1; O2SAT 94
--- NOTE | 2016-12-14 14:06 | HHI.PR ---
Subjective Remarks Pt is very anxious about possible bronchogenic carcinoma diagnosis. Objective Vitals Vital Signs Date Time Temp Pulse Resp B/P (MAP) Pulse Ox O2 Delivery O2 Flow Rate FiO2 12/14/16 12:00 98.1 74 20 105/66 (79) 94 12/14/16 08:00 97.9 73 20 120/59 (79) 87 12/14/16 04:00 97.9 64 20 114/66 (82) 92 12/14/16 00:29 16 12/14/16 00:00 97.7 60 20 120/59 (79) 94 12/13/16 23:00 63 12/13/16 22:06 85 18 185/74 (111) 94 12/13/16 20:00 97.9 68 20 124/77 (93) 94 12/13/16 16:00 98.6 61 18 131/76 (94) 96 Result Diagram: 12/11/16 1600 12/12/16 0711 Imaging Last 24 hours Impressions Chest X-Ray 12/11/16 1534 Signed Impressions: Service Date/Time: Sunday, December 11, 2016 16:19 - CONCLUSION: 1. Changes of obstructive pulmonary disease. 2. Prominent AP window which may be due to tortuosity of the thoracic aorta. This can be further evaluated with CT examination as clinically warranted. Dinesh Devine MD CT Angiography 12/11/16 0000 Signed Impressions: Service Date/Time: Sunday, December 11, 2016 17:30 - CONCLUSION: 1. No evidence for pulmonary embolism although there is mass effect on the main left pulmonary artery. 2. Moderate to severe centrilobular emphysema with large central left hilar lung mass measuring 8.7 x 2.2 cm with confluent mediastinal adenopathy/mass measuring 3.2 x 5.9 cm in the anterior carinal region. There is also postobstructive airspace consolidation in the anterior left upper lobe medially. Findings are consistent with central lung primary malignancy such as small cell carcinoma. 3. 2.3 x 1.3 cm left lung base subpleural nodule adjacent to the diaphragm consistent with distal metastatic disease. Dinesh Devine MD Objective Remarks General: Thin female in NAD, AAOx3 Chest: Poor air movement, no wheezing or rhonchi Cardiac: Regular Abd: +BS, soft ND/NT Ext: No edema A/P Problem List: (1) Chest pain ICD Codes: R07.9 - Chest pain, unspecified Status: Acute Plan: - Pt is a 61 y/o female with COPD, tobacco use, and hx of HTN (off medications) who presented to the ED with complaints of constant left sided chest pain, worse with movement, some radiating jaw pain. She also reported unintentional weight loss, poor appetite, generalized weakness, and some dysphagia. - CE were negative x 2 - CTA (12/11/16) --> No evidence for pulmonary embolism although there is mass effect on the main left pulmonary artery. Moderate to severe centrilobular emphysema with large central left hilar lung mass measuring 8.7 x 2.2cm with confluent mediastinal adenopathy/mass measuring 3.2 x 5.9 cm in the anterior carinal region. There is also postobstructive airspace consolidation in the anterior left upper lobe medially. Findings are consistent with central lung primary malignancy such as small cell carcinoma. 2.3 x 1.3 cm left lung base subpleural nodule adjacent to the diaphragm consistent with distal metastatic disease. - Appreciate Pulmonary medicine consultation, pt to under bronchoscopy early next week (Wednesday or Wednesday) - monitoring analyst - Pain control PRN - Pt declines any breathing treatments - Mucinex BID - Ensure with each meal and at bedtime - May consider GI consultation as pt reports some intermittent dysphagia, may be related to external compression from about noted masses - Supportive care - DVT prophylaxis with Lovenox 12/14/16 - Case d/w Pulmonary Medicine, Dr. Arzate (12/14/16) - Pt to undergo Bronchoscopy with biopsy tomorrow 12/15/16 (2) Hilar mass ICD Codes: R91.8 - Other nonspecific abnormal finding of lung field Status: Acute Plan: - See above. (3) Mediastinal mass ICD Codes: J98.59 - Other diseases of mediastinum, not elsewhere classified Status: Acute Plan: - See above. Problem Qualifiers (1) Chest pain: Qualified Codes: R07.9 - Chest pain, unspecified Milton Collazo DO Dec 14, 2016 14:06
--- NOTE | 2016-12-14 14:25 | HHI.PR ---
Subjective Remarks ALERT NO SOB Objective Vital Signs Date Time Temp Pulse Resp B/P (MAP) Pulse Ox O2 Delivery O2 Flow Rate FiO2 12/14/16 12:00 98.1 74 20 105/66 (79) 94 12/14/16 08:00 97.9 73 20 120/59 (79) 87 12/14/16 04:00 97.9 64 20 114/66 (82) 92 12/14/16 00:29 16 12/14/16 00:00 97.7 60 20 120/59 (79) 94 12/13/16 23:00 63 12/13/16 22:06 85 18 185/74 (111) 94 12/13/16 20:00 97.9 68 20 124/77 (93) 94 12/13/16 16:00 98.6 61 18 131/76 (94) 96 I/O 12/13/16 12/13/16 12/13/16 12/14/16 12/14/16 12/14/16 07:00 15:00 23:00 07:00 15:00 23:00 Intake Total 960 ml 360 ml 360 ml Balance 960 ml 360 ml 360 ml Intake Oral 960 ml 360 ml 360 ml # Voids 2 3 2 # Bowel Movements 0 Result Diagram: 12/11/16 1600 12/12/16 0711 Objective Remarks GENERAL: SKIN: Warm and dry. HEAD: Atraumatic. Normocephalic. EYES: Pupils equal and round. No scleral icterus. No injection or drainage. ENT: No nasal bleeding or discharge. Mucous membranes pink and moist. NECK: Trachea midline. No JVD. CARDIOVASCULAR: Regular rate and rhythm. RESPIRATORY: No accessory muscle use. Clear to auscultation. Breath sounds equal bilaterally. GASTROINTESTINAL: Abdomen soft, non-tender, nondistended. Hepatic and splenic margins not palpable. MUSCULOSKELETAL: Extremities without clubbing, cyanosis, or edema. No obvious deformities. NEUROLOGICAL: Awake and alert. No obvious cranial nerve deficits. Motor grossly within normal limits. Five out of 5 muscle strength in the arms and legs. Normal speech. PSYCHIATRIC: Appropriate mood and affect; insight and judgment normal. Assessment and Plan Assessment and Plan LEFT HILAR MASS ? COPD PLAN BRONCHOSCOPY CHECK PFT Huey Arzate MD Dec 14, 2016 14:25
[2016-12-14 16:00] VITALS: BP 110/65; PULSE 65; RESP 20; TEMP 97.9; O2SAT 95
[2016-12-14 16:39] LABS: AUTOMATED NEUTROPHIL # 3.4 TH/MM3 (1.8-7.7); BASOPHIL # 0.1 TH/MM3 (0-0.2); EOSINOPHIL # 0.2 TH/MM3 (0-0.4); EOSINOPHIL % 2.8 % (0.0-4.0); HEMATOCRIT 39.8 % (35.0-46.0); HEMO FLAGS DIFF FINAL; LYMPHOCYTE # 1.5 TH/MM3 (1.0-4.8); MEAN CORPUSCULAR HEMOGLOBIN 30.1 PG (27.0-34.0); MEAN CORPUSCULAR HGB CONC 32.8 % (32.0-36.0); MONO % 7.3 % (0.0-8.0); NEUT % 61.9 % (16.0-70.0); PLATELET COUNT 205 TH/MM3 (150-450); RED BLOOD COUNT 4.33 MIL/MM3 (4.00-5.30); RED CELL DISTRIBUTION WIDTH 12.9 % (11.6-17.2); WHITE BLOOD COUNT 5.6 TH/MM3 (4.0-11.0)
[2016-12-14 16:45] LABS: PROTHROMBIN TIME - PATIENT 10.7 SEC (9.8-11.6)
[2016-12-14 20:00] VITALS: BP 133/73; PULSE 66; RESP 18; TEMP 98.3; O2SAT 96
[2016-12-14] MEDS: ALPRAZolam 0.25 MG TAB PO PRN (22:37)
[2016-12-15] VITALS: BP 117/63; PULSE 59; RESP 18; TEMP 97.8; O2SAT 92
[2016-12-15 04:00] VITALS: BP 129/76; PULSE 64; RESP 18; TEMP 98; O2SAT 94
--- NOTE | 2016-12-15 05:55 | MB ---
cc: SANDEE BARTHOLOMEW MD DATE OF CONSULTATION 12/14/2016 DATE OF 1955 CHIEF COMPLAINT Mass suspicious for lung cancer. HISTORY OF PRESENT ILLNESS Ms. De Anda is a 61-year-old lady with a history of tobacco abuse and COPD who presented to our emergency room on December 11, 2016, with a history of left-sided chest pain that radiated to the neck and shortness of breath. She also reports a several month history of weight loss, decreased appetite, cough and progressively worsening fatigue. CTA from December 11 showed a 2.2 x 8.7 large central left perihilar mass with extensive mediastinal adenopathy and dense anterior left upper lobe consolidation, likely post-obstructive. There is a 2.3 x 1.3-cm subpleural nodule in the left lung base adjacent to the diaphragm. There is massive mediastinal adenopathy with confluent adenopathy, mass measuring 3.2 x 5.9 cm in the anterior carinal region. There is a small pericardial effusion. Also noted was moderate to severe central lobular emphysema. LABORATORY STUDIES White blood cell count of 5.60, hemoglobin of 13.1 and a platelet count of 205 with a normal differential. Coags within normal limits. Chemistry with normal electrolytes, normal renal function, normal liver function, total protein 6.3 and albumin low at 3.2. She will go for bronchoscopy tomorrow. PAST MEDICAL HISTORY 1. Tobacco abuse. 2. COPD. PAST SURGICAL HISTORY One ovary removed in her 20s. SOCIAL HISTORY The patient lives in this area with her two adult sons. She is a long-time smoker. Denies alcohol and illegal drug use. 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 FAMILY HISTORY Significant family history of multiple malignancies. ALLERGIES CODEINE. REVIEW OF SYSTEMS MUSCULOSKELETAL: Positive for pain. GENERAL: Fatigue, weight loss. All other review of systems negative. PHYSICAL EXAMINATION GENERAL: A thin lady in no distress, resting comfortably in bed. HEENT: Oropharynx clear. NECK: Supple with no palpable lymphadenopathy. CARDIOVASCULAR: Regular rate and rhythm with no murmurs. LUNGS: Clear to auscultation bilaterally. GASTROINTESTINAL: Soft, nontender, nondistended with bowel sounds present. MUSCULOSKELETAL: Very thin. EXTREMITIES: No edema. NEUROLOGIC: Alert and oriented with no focal deficits, PSYCH: Normal mood and affect. ASSESSMENT AND PLAN 1. Large mediastinal lung mass suspicious for a primary malignancy: with mediastinal adenopathy and left sided lesion consistent with metastatic lesion. Bronchoscopy will take place tomorrow. -Ideally would ensure that bronch be done and at least preliminary pathology review to ensure that the patient does not have small cell lung cancer which would necessitate inpatient chemotherapy. Patient reports that she is anxious to leave the hospital to take care of bills around her house. Would still like to wait for prelim pathology evaluation. Will call once speicmen received to path -Ordered MRI of brain to be done inpatient. -Will order CT abdomen/pelvis to evaluate for disease in the abdomen 2. Pleural effusion seen on CT: will order echo for further evaluation. MD FERNANDO Hillman/FELIX /10:28 PM /5:42 AM CHRIS
[2016-12-15] MEDS: ACETAMINOPHEN/HYDROcodone 325 MG/5 MG TAB PO PRN ×3 (06:04→18:16)
[2016-12-15 08:04] VITALS: BP 104/62; PULSE 61; RESP 16; TEMP 97.7; O2SAT 91
[2016-12-15] MEDS: DOCUSATE SODIUM 50 MG/SENNA 8.6 MG TAB PO SCH ×2 (08:43→20:40)
[2016-12-15] MEDS: SODIUM CHLORIDE 0.9% FLUSH 10 ML FLUSH IV FLUSH SCH ×2 (08:43→20:40)
[2016-12-15] MEDS: guaiFENesin E.R. 600 MG TAB PO SCH ×2 (08:43→20:40)
[2016-12-15] MEDS: ALPRAZolam 0.25 MG TAB PO PRN (08:54)
[2016-12-15] MEDS ORDERED: DIATRIZOATE MEGLUM/DIATRIZOATE SOD 9 ML CUP PO ONE (11:30)
[2016-12-15] MEDS ORDERED: PHENYLEPH/NS 1000 MCG/10 ML SYR IV ONE (12:00)
[2016-12-15] MEDS ORDERED: LIDOCAINE HCL 1% PF 5 ML AMPULE OTHER ONE (12:00)
[2016-12-15] MEDS ORDERED: PROPOFOL 200 MG/20 ML AMP IV ONE (12:00)
[2016-12-15 12:04] VITALS: BP 102/62; PULSE 60; RESP 16; TEMP 97.5; O2SAT 89
[2016-12-15] MEDS ORDERED: GADODIAMIDE PF 287 MG/ML 10 ML VIAL (for RAD MRI) IVCONTRAST ONE (12:09)
--- NOTE | 2016-12-15 12:56 | RADRPT ---
EXAM DATE/TIME: 12/15/2016 11:56 [facility] COMPARISON: No previous studies available for comparison. INDICATIONS : Metastatic disease. Lung mass. CONTRAST: 8 cc Omniscan (gadodiamide) IV MEDICAL HISTORY : Hypertension. Diabetes mellitus type 2. CAD SURGICAL HISTORY : None. ENCOUNTER: Subsequent ACUITY: 4-6 days PAIN SCORE: 0/10 LOCATION: cranial TECHNIQUE: Multiplanar, multisequence MRI of the brain was performed both prior to and following the administrat ion of paramagnetic contrast. FINDINGS: CEREBRUM: The ventricles are normal for age. No evidence of midline shift, mass lesion, hemorrhage or acute in farction. No extraaxial fluid collections are seen. The pituitary gland and suprasellar cistern are normal in configuration. WHITE MATTER: No significant signal abnormalities are seen in the white matter. POSTERIOR FOSSA: The cerebellum and brainstem are intact. The 4th ventricle is midline. The cerebellopontine angle is unremarkable. The cerebellar tonsils are normal in position. DIFFUSION IMAGING: No focal areas of restricted diffusion are seen. No evidence of acute infarction. EXTRACRANIAL: The visualized portions of the orbits and paranasal sinuses are unremarkable. POST-CONTRAST: No abnormal areas of parenchymal or dural enhancement. No evidence of blood-brain barrier breakdown. CONCLUSION: Normal examination. No evidence of acute infarct, hemorrhage, mass or enhancing lesions. Mayo Guaman MD on December 15, 2016 at 12:51 Board Certified Radiologist. This report was verified electronically.
[2016-12-15 16:04] VITALS: BP 106/60; PULSE 60; RESP 16; TEMP 97.3; O2SAT 88
[2016-12-15] MEDS ORDERED: LIDOCAINE HCL 2% 50 ML VIAL ONE (16:37)
[2016-12-15] MEDS ORDERED: EPINEPHrine HCL (1:1000) 1 MG/ML VIAL ONE (16:37)
--- NOTE | 2016-12-15 16:56 | HHI.PR ---
Subjective Remarks Pt off floor for Bronchoscopy Objective Vitals Vital Signs Date Time Temp Pulse Resp B/P (MAP) Pulse Ox O2 Delivery O2 Flow Rate FiO2 12/15/16 16:00 Room Air 12/15/16 12:04 97.5 60 16 102/62 (75) 89 12/15/16 12:00 Room Air 12/15/16 08:37 Room Air 12/15/16 08:04 97.7 61 16 104/62 (76) 91 12/15/16 04:00 98.0 64 18 129/76 (93) 94 12/15/16 00:00 97.8 59 18 117/63 (81) 92 12/14/16 20:00 Room Air 12/14/16 20:00 98.3 66 18 133/73 (93) 96 Result Diagram: 12/14/16 1555 12/12/16 0711 Imaging Last 24 hours Impressions Chest X-Ray 12/11/16 1534 Signed Impressions: Service Date/Time: Sunday, December 11, 2016 16:19 - CONCLUSION: 1. Changes of obstructive pulmonary disease. 2. Prominent AP window which may be due to tortuosity of the thoracic aorta. This can be further evaluated with CT examination as clinically warranted. Dinesh Devine MD CT Angiography 12/11/16 0000 Signed Impressions: Service Date/Time: Sunday, December 11, 2016 17:30 - CONCLUSION: 1. No evidence for pulmonary embolism although there is mass effect on the main left pulmonary artery. 2. Moderate to severe centrilobular emphysema with large central left hilar lung mass measuring 8.7 x 2.2 cm with confluent mediastinal adenopathy/mass measuring 3.2 x 5.9 cm in the anterior carinal region. There is also postobstructive airspace consolidation in the anterior left upper lobe medially. Findings are consistent with central lung primary malignancy such as small cell carcinoma. 3. 2.3 x 1.3 cm left lung base subpleural nodule adjacent to the diaphragm consistent with distal metastatic disease. Dinesh Devine MD Objective Remarks General: Thin female in NAD, AAOx3 Chest: Poor air movement, no wheezing or rhonchi Cardiac: Regular Abd: +BS, soft ND/NT Ext: No edema A/P Problem List: (1) Chest pain ICD Codes: R07.9 - Chest pain, unspecified Status: Acute Plan: - Pt is a 61 y/o female with COPD, tobacco use, and hx of HTN (off medications) who presented to the ED with complaints of constant left sided chest pain, worse with movement, some radiating jaw pain. She also reported unintentional weight loss, poor appetite, generalized weakness, and some dysphagia. - CE were negative x 2 - CTA (12/11/16) --> No evidence for pulmonary embolism although there is mass effect on the main left pulmonary artery. Moderate to severe centrilobular emphysema with large central left hilar lung mass measuring 8.7 x 2.2cm with confluent mediastinal adenopathy/mass measuring 3.2 x 5.9 cm in the anterior carinal region. There is also postobstructive airspace consolidation in the anterior left upper lobe medially. Findings are consistent with central lung primary malignancy such as small cell carcinoma. 2.3 x 1.3 cm left lung base subpleural nodule adjacent to the diaphragm consistent with distal metastatic disease. - Appreciate Pulmonary medicine consultation, pt to under bronchoscopy early next week (Wednesday or Wednesday) - monitoring engineer - Pain control PRN - Pt declines any breathing treatments - Mucinex BID - Ensure with each meal and at bedtime - May consider GI consultation as pt reports some intermittent dysphagia, may be related to external compression from about noted masses - Supportive care - DVT prophylaxis with Lovenox 12/15/16 - Case d/w Pulmonary Medicine, Dr. Arzate (12/14/16) - Pt to undergo Bronchoscopy with biopsy 12/15/16 - Case d/w Dr. Sim (12/14/16) - MRI brain (12/15) --> NO acute findings - CT abd/pelvis --> pending (2) Hilar mass ICD Codes: R91.8 - Other nonspecific abnormal finding of lung field Status: Acute Plan: - See above. (3) Mediastinal mass ICD Codes: J98.59 - Other diseases of mediastinum, not elsewhere classified Status: Acute Plan: - See above. Problem Qualifiers (1) Chest pain: Qualified Codes: R07.9 - Chest pain, unspecified Milton Collazo DO Dec 15, 2016 16:56
--- NOTE | 2016-12-15 17:08 | HHI.PR ---
Subjective Remarks ALERT NO SOB Objective Vital Signs Date Time Temp Pulse Resp B/P (MAP) Pulse Ox O2 Delivery O2 Flow Rate FiO2 12/15/16 16:00 Room Air 12/15/16 12:04 97.5 60 16 102/62 (75) 89 12/15/16 12:00 Room Air 12/15/16 08:37 Room Air 12/15/16 08:04 97.7 61 16 104/62 (76) 91 12/15/16 04:00 98.0 64 18 129/76 (93) 94 12/15/16 00:00 97.8 59 18 117/63 (81) 92 12/14/16 20:00 Room Air 12/14/16 20:00 98.3 66 18 133/73 (93) 96 I/O 12/14/16 12/14/16 12/14/16 12/15/16 12/15/16 12/15/16 07:00 15:00 23:00 07:00 15:00 23:00 Intake Total 360 ml 360 ml 200 ml Balance 360 ml 360 ml 200 ml Intake Oral 360 ml 360 ml Other 200 ml # Voids 3 2 Result Diagram: 12/14/16 1555 12/12/16 0711 Objective Remarks GENERAL: SKIN: Warm and dry. HEAD: Atraumatic. Normocephalic. EYES: Pupils equal and round. No scleral icterus. No injection or drainage. ENT: No nasal bleeding or discharge. Mucous membranes pink and moist. NECK: Trachea midline. No JVD. CARDIOVASCULAR: Regular rate and rhythm. RESPIRATORY: No accessory muscle use. Clear to auscultation. Breath sounds equal bilaterally. GASTROINTESTINAL: Abdomen soft, non-tender, nondistended. Hepatic and splenic margins not palpable. MUSCULOSKELETAL: Extremities without clubbing, cyanosis, or edema. No obvious deformities. NEUROLOGICAL: Awake and alert. No obvious cranial nerve deficits. Motor grossly within normal limits. Five out of 5 muscle strength in the arms and legs. Normal speech. PSYCHIATRIC: Appropriate mood and affect; insight and judgment normal. Assessment and Plan Assessment and Plan LEFT HILAR MASS ? COPD PLAN BRONCHOSCOPY today CHECK PFT Huey Arzate MD Dec 15, 2016 17:08
[2016-12-15] MEDS ORDERED: DO NOT ADM ANY ANTICOAGULANT DRUGS PRN (17:15)
--- NOTE | 2016-12-15 17:47 | MR ---
cc: PAULY COATS DATE 12/15/16 PROCEDURE Fiberoptic bronchoscopy flexible. REASON FOR BRONCHOSCOPY Left lung mass malignancy suspect. POSTOP BRONCHOSCOPY DIAGNOSIS Left lung mass highly suspicious for malignancy. The fiberoptic bronchoscopy performed via LMA. Vocal cords intact. Trachea mildly hyperemic. Maris sharp. Right mainstem bronchus, right upper, middle and lower lobes inspected. No obstructive pathology or mass lesion seen. Left main bronchus at its lower end and before its bifurcation is with a mass lesion with significant occlusion of the left main bronchus. Washings obtained from the left mainstem bronchus for routine TB, fungal cultures, cytological examination. Biopsy of the mass lesion placed in formalin x1. Cytologic brush biopsies obtained as well, sent for cytological examination. Procedure well tolerated. The patient transferred to recovery in stable condition. IMPRESSION 1. Left mainstem bronchus mass. 2. Samples obtained as above. 3. Procedure well tolerated. 4. The patient transferred to recovery in stable condition. MD LEE Childs/JERED /5:05 PM /5:29 PM
[2016-12-15 20:00] VITALS: BP 114/71; PULSE 74; RESP 18; TEMP 98.6; O2SAT 97
[2016-12-15] MEDS ORDERED: IOHEXOL 350 MG/ML 10 ML VIAL (for RAD DIAG) IVCONTRAST ONE (22:42)
--- NOTE | 2016-12-15 22:48 | RADRPT ---
EXAM DATE/TIME: 12/15/2016 22:08 [facility] COMPARISON: No previous studies available for comparison. INDICATIONS : Lung cancer, evaluate for distant disease. IV CONTRAST: 70 cc Omnipaque 350 (iohexol) IV ORAL CONTRAST: Partial prescribed oral contrast ingested. RADIATION DOSE: 5.98 CTDIvol (mGy) MEDICAL HISTORY : Chronic obstructive pulmonary disease. Carcinoma, lung. SURGICAL HISTORY : Left ovary removed. ENCOUNTER: Initial ACUITY: 1 day PAIN SCALE: 3/10 LOCATION: Left flank TECHNIQUE: Volumetric scanning of the abdomen and pelvis was performed. Using automated exposure control and ad justment of the mA and/or kV according to patient size, radiation dose was kept as low as reasonably achievable to obtain optimal diagnostic quality images. DICOM format image data is available electro nically for review and comparison. FINDINGS: LOWER LUNGS: The visualized lower lungs are clear. LIVER: Homogeneous density without lesion. There is no dilation of the biliary tree. No calcified gallston es. SPLEEN: Normal size without lesion. PANCREAS: Within normal limits. KIDNEYS: Normal in size and shape. There is no mass, stone or hydronephrosis. ADRENAL GLANDS: Within normal limits. VASCULAR: Atherosclerotic changes and mild aortic ectasia. BOWEL/MESENTERY: The stomach, small bowel, and colon demonstrate no acute abnormality. There is no free intraperitone al air or fluid. ABDOMINAL WALL: Within normal limits. RETROPERITONEUM: There is no lymphadenopathy. BLADDER: No wall thickening or mass. REPRODUCTIVE: Prominent gonadal varices, particularly on the left. INGUINAL: There is no lymphadenopathy or hernia. MUSCULOSKELETAL: Within normal limits for patient age. CONCLUSION: No evidence of metastatic disease in the abdomen or pelvis. Rafi Gonzalez MD on December 15, 2016 at 22:44 Board Certified Radiologist. This report was verified electronically.
[2016-12-16] VITALS: BP 106/65; PULSE 60; RESP 16; TEMP 97.3; O2SAT 94
[2016-12-16] MEDS: ACETAMINOPHEN/HYDROcodone 325 MG/5 MG TAB PO PRN ×3 (00:07→10:14)
[2016-12-16 04:00] VITALS: BP 104/60; PULSE 57; RESP 16; TEMP 97.8; O2SAT 94
[2016-12-16 08:00] VITALS: BP 92/50; PULSE 59; RESP 18; TEMP 98.2; O2SAT 93
[2016-12-16] MEDS: DOCUSATE SODIUM 50 MG/SENNA 8.6 MG TAB PO SCH (08:09)
[2016-12-16] MEDS: guaiFENesin E.R. 600 MG TAB PO SCH (08:09)
[2016-12-16] MEDS: SODIUM CHLORIDE 0.9% FLUSH 10 ML FLUSH IV FLUSH SCH (08:09)
--- NOTE | 2016-12-16 09:07 | HHI.DCPOC ---
Discharge Care Plan Diagnosis: (1) Mediastinal mass (2) Chest pain (3) Hilar mass Goals to Promote Your Health * To prevent worsening of your condition and complications * To maintain your health at the optimal level Directions to Meet Your Goals Take your medications as prescribed Follow your dietary instruction Follow activity as directed Keep your appointments as scheduled Take your immunizations and boosters as scheduled If your symptoms worsen call your PCP, if no PCP go to Urgent Care Center or Emergency Room Smoking is Dangerous to Your Health. Avoid second hand smoke Call the 24-hour hour crisis hotline for domestic abuse at [place] Dec 16, 2016 09:07 Milton Collazo DO Dec 19, 2016 21:41
--- NOTE | 2016-12-16 09:11 | HHI.DS ---
Discharge Summary Admission Date Dec 11, 2016 at 20:51 Discharge Date: Dec 16, 2016 Admitting Diagnosis chest pain, mediastinal mass (1) Chest pain ICD Codes: R07.9 - Chest pain, unspecified Status: Acute (2) Hilar mass ICD Codes: R91.8 - Other nonspecific abnormal finding of lung field Status: Acute (3) Mediastinal mass ICD Codes: J98.59 - Other diseases of mediastinum, not elsewhere classified Status: Acute Consultants Medical oncology Dr. Sim Pulmonology Dr. Arzate Procedures 12/15/16 bronchoscopy with biopsy with Dr. Arzate Brief History 61 y/o white female with history of smoking who presents to er with left sided chest pain intermittent worse with movement and with some shortness of breath . Pain comes and goes but has been progressive for last 6 months associated with weight loss poor appetite cough fatigue. Patient does smoke about 6 months ago was smoking 2 ppd and slowly has been decresing that to 6 cigarettes a day. In er ekg and lab work was unremarkable but had positive d dimmer and CTA was ordered showed no PE but large hilar mass with mediastinal involvement suggesting malignancy. Will ad papi and obtain pulmonary consult. Patient states has had pain to left neck and jaw as well will recheck ekg and troponin in am . CBC/BMP: 12/14/16 1555 12/12/16 0711 Significant Findings Laboratory Tests Test 12/14/16 15:55 Imaging Last Impressions Brain MRI 12/15/16 0000 Signed Impressions: Service Date/Time: Thursday, December 15, 2016 11:56 - CONCLUSION: Normal examination. No evidence of acute infarct, hemorrhage, mass or enhancing lesions. Mayo Guaman MD Abdomen/Pelvis CT 12/15/16 0000 Signed Impressions: Service Date/Time: Thursday, December 15, 2016 22:08 - CONCLUSION: No evidence of metastatic disease in the abdomen or pelvis. Rafi Gonzalez MD Chest X-Ray 12/11/16 1534 Signed Impressions: Service Date/Time: Sunday, December 11, 2016 16:19 - CONCLUSION: 1. Changes of obstructive pulmonary disease. 2. Prominent AP window which may be due to tortuosity of the thoracic aorta. This can be further evaluated with CT examination as clinically warranted. Dinesh Devine MD CT Angiography 12/11/16 0000 Signed Impressions: Service Date/Time: Sunday, December 11, 2016 17:30 - CONCLUSION: 1. No evidence for pulmonary embolism although there is mass effect on the main left pulmonary artery. 2. Moderate to severe centrilobular emphysema with large central left hilar lung mass measuring 8.7 x 2.2 cm with confluent mediastinal adenopathy/mass measuring 3.2 x 5.9 cm in the anterior carinal region. There is also postobstructive airspace consolidation in the anterior left upper lobe medially. Findings are consistent with central lung primary malignancy such as small cell carcinoma. 3. 2.3 x 1.3 cm left lung base subpleural nodule adjacent to the diaphragm consistent with distal metastatic disease. Dinesh Devine MD PE at Discharge General: Thin female in NAD, AAOx3 Chest: Poor air movement, no wheezing or rhonchi Cardiac: Regular Abd: +BS, soft ND/NT Ext: No edema Hospital Course Chest pain - Pt is a 61 y/o female with COPD, tobacco use, and hx of HTN (off medications) who presented to the ED with complaints of constant left sided chest pain, worse with movement, some radiating jaw pain. She also reported unintentional weight loss, poor appetite, generalized weakness, and some dysphagia. - CE were negative x 2 - CTA (12/11/16) --> No evidence for pulmonary embolism although there is mass effect on the main left pulmonary artery. Moderate to severe centrilobular emphysema with large central left hilar lung mass measuring 8.7 x 2.2cm with confluent mediastinal adenopathy/mass measuring 3.2 x 5.9 cm in the anterior carinal region. There is also postobstructive airspace consolidation in the anterior left upper lobe medially. Findings are consistent with central lung primary malignancy such as small cell carcinoma. 2.3 x 1.3 cm left lung base subpleural nodule adjacent to the diaphragm consistent with distal metastatic disease. 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 Arzate (12/14/16) - Pt to undergo Bronchoscopy with biopsy 12/15/16 - Case d/w Dr. Sim (12/14/16) - MRI brain (12/15) --> NO acute findings - CT abd/pelvis --> No evidence of metastatic disease in the abdomen or pelvis Hilar mass - See above. Mediastinal mass - See above. Pt Condition on Discharge: Stable Discharge Disposition: Discharge Home Discharge Instructions DIET: Follow Instructions for: As Tolerated, No Restrictions Activities you can perform: Regular-No Restrictions Follow up Referrals: Oncology - [address] Cleo Sim PCP Follow-up - [address] Bergeron Pulmonology - 2 Weeks with Huey Arzate MD Medication Profile: No Active Prescriptions or Reported Meds [place] Dec 16, 2016 09:11
[2016-12-16 10:15] VITALS: BP 111/58
--- NOTE | 2016-12-16 10:18 | PD.ONC.PN ---
Subjective Subjective Remarks Ms. De Anda is sitting up in bed. She reports that she is doing well. She would like to be discharged today. Her only issue is neck pain which is relieved with pain medication. She lives in [place] and has a good support system at home. Objective Data Date Time Temp Pulse Resp B/P (MAP) Pulse Ox O2 Delivery O2 Flow Rate FiO2 12/16/16 08:06 Room Air 12/16/16 08:00 98.2 59 18 92/50 (64) 93 12/16/16 04:00 97.8 57 16 104/60 (75) 94 12/16/16 00:00 97.3 60 16 106/65 (79) 94 12/15/16 20:00 98.6 74 18 114/71 (85) 97 12/15/16 20:00 Room Air 12/15/16 17:45 98.1 77 20 128/73 (91) 91 Room Air 12/15/16 17:30 79 20 130/76 (94) 96 12/15/16 17:11 98.1 89 20 174/101 (125) 93 Nasal Cannula 2 12/15/16 16:04 97.3 60 16 106/60 (75) 88 12/15/16 16:00 Room Air 12/15/16 12:04 97.5 60 16 102/62 (75) 89 12/15/16 12:00 Room Air Result Diagram: 12/14/16 1555 12/12/16 0711 Administered Medications Medications (Trade) Dose Ordered Sig/Jolynn Route PRN Reason Start Time Stop Time Status Last Admin Dose Admin Ropinirole HCl (Requip) 1 mg HS PO 12/11/16 21:00 12/15/16 20:40 Sodium Chloride (NS Flush) 2 ml BID IV FLUSH 12/11/16 21:00 12/16/16 08:09 Acetaminophen (Tylenol) 650 mg Q4H PRN PO TEMP > 100.4 12/11/16 20:45 12/12/16 16:43 Senna/Docusate Sodium (Justyna-Colace) 1 tab BID PO 12/11/16 21:00 12/16/16 08:09 Guaifenesin (Mucinex Er) 600 mg BID PO 12/12/16 09:00 12/16/16 08:09 Enoxaparin Sodium (Lovenox Inj) 30 mg Q24H SQ 12/12/16 09:00 Future Hold 12/13/16 10:06 Acetaminophen/ Hydrocodone Bitart ([place] 5-325 Mg) 1 tab Q4H PRN PO pain 2-5 12/12/16 15:30 12/12/16 23:06 Acetaminophen/ Hydrocodone Bitart ([place] 5-325 Mg) 2 tab Q4H PRN PO pain 6-10 12/12/16 15:30 12/16/16 06:06 Ondansetron HCl (Zofran Inj) 4 mg Q6H PRN IV PUSH NAUSEA 12/13/16 23:45 12/13/16 23:58 Alprazolam (Xanax) 0.25 mg Q6H PRN PO anxiety 12/14/16 14:15 12/15/16 08:54 Objective Remarks GENERAL: thin lady in no distress SKIN: Warm and dry. HEAD: Normocephalic. EYES: No scleral icterus. No injection or drainage. NECK: Supple, trachea midline LYMPHATIC: No adenopathy. CARDIOVASCULAR: Regular rate and rhythm without murmurs. RESPIRATORY: Breath sounds equal bilaterally. No accessory muscle use. GASTROINTESTINAL: Abdomen soft, non-tender, nondistended. EXTREMITIES: No cyanosis, or edema. NEUROLOGICAL: No obvious focal deficit. Awake, alert, and oriented x3. PSYCHIATRIC: Appropriate mood and affect; insight and judgment normal. Assessment/Plan Assessment 1. Suspicious for primary lung malignancy: with 8.7 cm x2.2 cm left central lung mass with confluent mediastinal adenopathy measuring 3.2x5.9 cm. She also has a 2.3 x 1.3 cm left lung base lesion. S/p bronch with biopsy yesterday with pathology pending. Called path and will likely be at least 2 if not 3 days prior to results. As patient is doing well with controlled pain, normal labs and vitals and has a support system at home will discharge with close follow up. Ct abdomen/pelvis with no evidence of distant metastatic disease. MRI brain with no acute findings. -Place request with oncology new patient scheduling team for follow up in one week. 2. Small pericardial effusion visualized on CT: will have outpatient echo performed. Cleo Sim MD Dec 16, 2016 10:18
[2016-12-16] MEDS ORDERED: HYDR-3583 PO (11:01)
[2016-12-16] MEDS ORDERED: ALPR.25 PO (11:01)
[2016-12-16] MEDS ORDERED: COLA100C PO (11:01)
[2016-12-16 12:00] VITALS: BP 103/59; PULSE 68; RESP 18; TEMP 98.1; O2SAT 95
[2016-12-16] MEDS: ALPRAZolam 0.25 MG TAB PO PRN (12:31)
--- NOTE | 2016-12-16 17:23 | ECHRPT ---
Indication: Shortness of breath CONCLUSIONS The left ventricular systolic function is normal with an estimated ejection fraction in the range of 55-60%. Wall thickness is normal. Normal left ventricular size. Mild aortic valve regurgitation. Diffuse calcification of the aortic valve. There is mild tricuspid valve regurgitation. The estimated pulmonary arterial pressure is 35 mmHg. No pericardial effusion. BP: 104 / 62 HR: 61 Rhythm: Sinus MEASUREMENTS (Male / Female) Normal Values Technical Quality:Good 2D ECHO LV Diastolic Diameter PLAX 3.5 cm 4.2 - 5.9 / 3.9 - 5.3 cm LV Systolic Diameter PLAX 2.6 cm IVS Diastolic Thickness 1.0 cm 0.6 - 1.0 / 0.6 - 0.9 cm LVPW Diastolic Thickness 1.0 cm 0.6 - 1.0 / 0.6 - 0.9 cm LV Relative Wall Thickness 0.6 LVOT Diameter 2.0 cm M-MODE Aortic Root Diameter MM 2.9 cm LA Systolic Diameter MM 3.1 cm LA Ao Ratio MM 1.1 AV Cusp Separation MM 1.8 cm DOPPLER AV Peak Velocity 155.0 cm/s AV Peak Gradient 9.6 mmHg AI Peak Velocity 432.0 cm/s AI Peak Gradient 74.6 mmHg AI Pressure Half Time 655.0 ms LVOT Peak Velocity 122.0 cm/s LVOT Peak Gradient 6.0 mmHg AV Area Cont Eq pk 2.5 cm Mitral E Point Velocity 108.0 cm/s Mitral A Point Velocity 69.6 cm/s Mitral E to A Ratio 1.6 LV E' Lateral Velocity 8.2 cm/s Mitral E to LV E' Lateral Ratio 13.2 LV E' Septal Velocity 4.9 cm/s Mitral E to LV E' Septal Ratio 22.2 TR Peak Velocity 251.0 cm/s TR Peak Gradient 25.2 mmHg Right Atrial Pressure 10.0 mmHg Pulmonary Artery Systolic Pressu 35.2 mmHg Right Ventricular Systolic Press 35.2 mmHg PV Peak Velocity 85.5 cm/s PV Peak Gradient 2.9 mmHg FINDINGS LEFT VENTRICLE The left ventricular systolic function is normal with an estimated ejection fraction in the range of 55-60%. Wall thickness is normal. Normal left ventricular size. RIGHT VENTRICLE Normal right ventricular size and systolic function. LEFT ATRIUM The left atrial size is normal. RIGHT ATRIUM The right atrial size is normal. ATRIAL SEPTUM Normal atrial septal thickness without atrial level shunting by limited color doppler interrogation. AORTA The aortic root and proximal ascending aorta are normal in size on limited imaging. MITRAL VALVE Structurally normal mitral valve. No mitral valve stenosis or regurgitation. AORTIC VALVE Mild aortic valve regurgitation. Diffuse calcification of the aortic valve. TRICUSPID VALVE There is mild tricuspid valve regurgitation. The estimated pulmonary arterial pressure is 35.2 mmHg. PULMONARY VALVE No pulmonary valve regurgitation or stenosis. VESSELS The inferior vena cava is normal in size. PERICARDIUM No pericardial effusion. Marty John MD, FACC (Electronically Signed) Final Date:16 December 2016 17:23
== END 2016-12-16 13:06 | disposition home or self-care (01) | DRG 178 ==
LOC: NEPE 15:25 → NEDA 19:11 → OBSVTOIN 20:51 → NEPHCDU 21:59 → N04B 12-13 08:11
PROVIDERS: ADMIT Hospitalist; ATTEND Hospitalist
PROC: 0BB78ZX Excision of Left Main Bronchus, Via Natural or Artificial Opening Endoscopic, Diagnostic (ICD-10-PCS; principal; 2016-12-15 16:42)
DX: J98.59 Other diseases of mediastinum, not elsewhere classified (principal); Z68.1 Body mass index [BMI] 19.9 or less, adult; I10 Essential (primary) hypertension; R63.4 Abnormal weight loss; J44.9 Chronic obstructive pulmonary disease, unspecified; R07.89 Other chest pain; F17.210 Nicotine dependence, cigarettes, uncomplicated; G25.81 Restless legs syndrome
CPT/HCPCS: 70553; 71010; 71275; 74177; 80048; 80053; 82550; 84484; 85025; 85379; 85610; 88305; 88341; 88342; 93005; 93306; 96374; A9579; J0171; J1170; J1650; J1885; J2270; J2370; J2405; Q9963; Q9967